=== PATIENT | male | born 1960 | race African-American/Black ===

== ENCOUNTER 2020-12-30 00:02 | Emergency (ER) | payer MEDICAID ==
[~2020-12-30] VITALS: Ht 185.4 cm; Wt 91.0 kg
[2020-12-30] MEDS ORDERED: LORAZEPAM 2MG/ML CPJ IV ONE (00:30)
[2020-12-30] MEDS ORDERED: ONDANSETRON HCL 4MG/2ML INJ IV ONE (00:30)
[2020-12-30] MEDS ORDERED: SODIUM CHLORIDE 0.9% 1,000 ML IV ONE (00:30)
[2020-12-30 01:36] LABS: BASOPHILS % 0.5 % (0.0-2.0); EOSINOPHILS % 0.3 % (0.0-5.0); HEMATOCRIT. 41.1 % (42.0-52.0); HEMOGLOBIN. 13.6 g/dL (14.0-18.0); LYMPHOCYTES % 15.3 % (20.0-50.0); MEAN CORPUSCULAR HEMOGLOBIN 30.1 pg (28.0-32.0); MEAN CORPUSCULAR VOLUME 90.8 fL (80.0-94.0); MEAN PLATELET VOLUME 8.8 fl (7.4-10.4); MONOCYTES % 4.1 % (2.0-8.0); NEUTROPHILS % 79.8 % (40.0-76.0); PLATELET 219 x1000/uL (130-400); RED BLOOD CELL COUNT 4.53 mill/uL (4.7-6.1); RED CELL DISTRIBUTION WIDTH 14.1 % (11.6-14.6)
[2020-12-30 01:39] LABS: CHLORIDE 112 mEq/L (98-107)
[2020-12-30 01:45] LABS: ETHANOL BLOOD < 10 mg/dL
[2020-12-30 01:45] LABS: *AMPHETAMINES SCREEN URINE NEGATIVE (NEGATIVE); *BARBITURATES SCREEN URINE NEGATIVE (NEGATIVE); *BENZODIAZEPINES SCREEN URINE NEGATIVE (NEGATIVE); *COCAINE SCREEN URINE NEGATIVE (NEGATIVE)
[2020-12-30 01:46] LABS: CANNABINOID URINE SCREEN NEGATIVE (NEGATIVE); METHADONE URINE SCREEN NEGATIVE (NEGATIVE); OPIATES URINE SCREEN NEGATIVE (NEGATIVE); PHENCYCLIDINE URINE SCREEN PRESUMTIVE POSITIVE (NEGATIVE)
[2020-12-30] MEDS ORDERED: IBUPROFEN 800MG TABLET PO ONE (03:30)
[2020-12-30 03:36] VITALS: BP 160/92
== END 2020-12-30 03:37 | disposition home or self-care (01) ==
LOC: EDBD 00:02 → ER 00:02
DX: F16.129 Hallucinogen abuse with intoxication, unspecified (principal); R41.82 Altered mental status, unspecified; G40.909 Epilepsy, unspecified, not intractable, without status epilepticus; F17.210 Nicotine dependence, cigarettes, uncomplicated
CPT/HCPCS: 36415; 80053; 80305; 80307; 80320; 80329; 85025; 93005; 96361; 96374; 96375; 99284; J2060; J2405; J7030; G0480